=== PATIENT | male | born 1965 | race Caucasian/White ===

== ENCOUNTER 2017-01-01 10:47 | Observation (INO) | payer SELFPAY ==
[~2017-01-01] VITALS: Ht 177.8 cm; Wt 100.0 kg
[2017-01-01 10:50] VITALS: BP 191/124; PULSE 94; RESP 16; TEMP 97.9; O2SAT 97
--- NOTE | 2017-01-01 12:00 | RADRPT ---
EXAM DATE/TIME: 01/01/2017 11:53 [place] COMPARISON: No previous studies available for comparison. INDICATIONS : Chest pain. MEDICAL HISTORY : high blood pressure, dizzyness for 1 month SURGICAL HISTORY : None. ENCOUNTER: Initial ACUITY: 1 day PAIN SCORE: 3/10 LOCATION: Bilateral chest FINDINGS: PA and lateral views of the chest demonstrate the lungs to be symmetrically aerated without evidence of mass, infiltrate or effusion. The cardiomediastinal contours are unremarkable. Osseous structure s are intact. CONCLUSION: No acute disease. Dickson Wise Jr., MD on January 01, 2017 at 11:57 Board Certified Radiologist. This report was verified electronically.
[2017-01-01 12:44] LABS: AUTOMATED NEUTROPHIL # 7.5 TH/MM3 (1.8-7.7); BASOPHIL # 0.1 TH/MM3 (0-0.2); BASOPHIL % 0.5 % (0.0-2.0); EOSINOPHIL # 0.1 TH/MM3 (0-0.4); EOSINOPHIL % 1.2 % (0.0-4.0); HEMATOCRIT 45.4 % (39.0-51.0); HEMO FLAGS DIFF FINAL; LYMPH % 18.2 % (9.0-44.0); LYMPHOCYTE # 1.8 TH/MM3 (1.0-4.8); MEAN CELL VOLUME 96.2 FL (80.0-100.0); MEAN CORPUSCULAR HEMOGLOBIN 33.7 PG (27.0-34.0); MONO % 6.3 % (0.0-8.0); NEUT % 73.8 % (16.0-70.0); PLATELET COUNT 301 TH/MM3 (150-450); RED BLOOD COUNT 4.72 MIL/MM3 (4.50-5.90); RED CELL DISTRIBUTION WIDTH 12.8 % (11.6-17.2); WHITE BLOOD COUNT 10.2 TH/MM3 (4.0-11.0)
[2017-01-01 13:07] VITALS: RESP 21; O2SAT 99
[2017-01-01 13:11] LABS: ANION GAP 8 MEQ/L (5-15); BICARBONATE 26.1 MEQ/L (21.0-32.0); BLOOD UREA NITROGEN 12 MG/DL (7-18); CHLORIDE 106 MEQ/L (98-107); GLOMERULAR FILTRATION RATE 92 ML/MIN (>89); POTASSIUM 4.4 MEQ/L (3.5-5.1); SODIUM (NA) 140 MEQ/L (136-145)
--- NOTE | 2017-01-01 13:13 | PD ---
HPI Chief Complaint: Chest Pain Time Seen by Provider: 13:10 Travel History International Travel<30 days: No Contact w/Intl Traveler<30days: No Traveled to known affect area: No History of Present Illness HPI 51-year-old male came to the emergency room with history of left sided chest pain that started at 9:00 this morning when he was driving. Patient says that he started coughing spontaneously and the pain started after that. He also got dizzy to the point where he had to stop his truck and get out of the vehicle. The dizziness was in the form of lightheadedness. That lasted for another 15- 20 minutes but the chest pain has persisted. Patient says the pain is not as worse as when it first started but still there. It's like a pressure sensation on the left side without any radiation. Patient says this morning when he woke up he was not feeling right and he took his blood pressure pill which is 20 mg of lisinopril. After the incidence in his truck he took another dose of lisinopril. Currently his blood pressure is 201 systolic. Patient says that he had a similar event about 10 years ago when he also had a stress test done. No history of coronary artery disease at this point. He is a smoker. [facility] Past Medical History Narrative Medical List of his past medical, surgical, social and family history is reviewed from the nursing note. Allergies-Medications (Allergen,Severity, Reaction): Coded Allergies: aspirin (Verified Allergy, Intermediate, hives, 01/01/17) ibuprofen (Verified Allergy, Intermediate, hives, 01/01/17) Comments No known drug allergies. Reported Meds & Prescriptions Reported Meds & Active Scripts Active Reported Vitamin C (Ascorbic Acid) 250 Mg Tab 250 Mg PO Multi-Vitamin Daily (Multiple Vitamin) 1 Tab Tab 1 Tab PO DAILY Lisinopril 20 Mg Tab 20 Mg PO DAILY Narrative Medication List of his home medications reviewed from the nursing note. Review of Systems Except as stated in HPI: all other systems reviewed are Neg Cardiovascular: Positive: Chest Pain or Discomfort Physical Exam Narrative GENERAL: Awake, alert, obese, no obvious distress SKIN: Focused skin assessment warm/dry. HEAD: Atraumatic. Normocephalic. EYES: Pupils equal and round. No scleral icterus. No injection or drainage. ENT: No nasal bleeding or discharge. Mucous membranes pink and moist. NECK: Trachea midline. No JVD. CARDIOVASCULAR: Regular rate and rhythm. No murmur appreciated. RESPIRATORY: No accessory muscle use. Clear to auscultation. Breath sounds equal bilaterally. GASTROINTESTINAL: Abdomen soft, non-tender, nondistended. Hepatic and splenic margins not palpable. MUSCULOSKELETAL: No obvious deformities. No clubbing. No cyanosis. No edema. NEUROLOGICAL: Awake and alert. No obvious cranial nerve deficits. Motor grossly within normal limits. Normal speech. PSYCHIATRIC: Appropriate mood and affect; insight and judgment normal. Data Data Last Documented VS Vital Signs Date Time Temp Pulse Resp B/P (MAP) Pulse Ox O2 Delivery O2 Flow Rate FiO2 01/01/17 13:14 99 Room Air 01/01/17 13:07 21 01/01/17 10:50 97.9 94 Orders Orders Electrocardiogram (01/01/17 11:34) Complete Blood Count With Diff (01/01/17 11:34) Basic Metabolic Panel (Bmp) (01/01/17 11:34) Ckmb (Isoenzyme) Profile (01/01/17 11:34) Troponin I (01/01/17 11:34) Iv Access Insert/Monitor (01/01/17 11:34) Ecg Monitoring (01/01/17 11:34) Oxygen Administration (01/01/17 11:34) Oximetry (01/01/17 11:34) Chest, Pa & Lat (01/01/17 11:34) CKMB (01/01/17 12:20) CKMB% (01/01/17 12:20) Clonidine (Catapres) (01/01/17 14:00) Admit Order (Ed Use Only) (01/01/17 14:12) Labs Laboratory Tests Test 01/01/17 12:20 White Blood Count 10.2 TH/MM3 Red Blood Count 4.72 MIL/MM3 Hemoglobin 15.9 GM/DL Hematocrit 45.4 % Mean Corpuscular Volume 96.2 FL Mean Corpuscular Hemoglobin 33.7 PG Mean Corpuscular Hemoglobin Concent 35.0 % Red Cell Distribution Width 12.8 % Platelet Count 301 TH/MM3 Mean Platelet Volume 8.0 FL Neutrophils (%) (Auto) 73.8 % Lymphocytes (%) (Auto) 18.2 % Monocytes (%) (Auto) 6.3 % Eosinophils (%) (Auto) 1.2 % Basophils (%) (Auto) 0.5 % Neutrophils # (Auto) 7.5 TH/MM3 Lymphocytes # (Auto) 1.8 TH/MM3 Monocytes # (Auto) 0.6 TH/MM3 Eosinophils # (Auto) 0.1 TH/MM3 Basophils # (Auto) 0.1 TH/MM3 CBC Comment DIFF FINAL Differential Comment Blood Urea Nitrogen 12 MG/DL Creatinine 0.88 MG/DL Random Glucose 101 MG/DL Calcium Level 9.2 MG/DL Sodium Level 140 MEQ/L Potassium Level 4.4 MEQ/L Chloride Level 106 MEQ/L Carbon Dioxide Level 26.1 MEQ/L Anion Gap 8 MEQ/L Estimat Glomerular Filtration Rate 92 ML/MIN Total Creatine Kinase 224 U/L Creatine Kinase MB 2.5 NG/ML Troponin I LESS THAN 0.02 NG/ML MDM Medical Decision Making Medical Screen Exam Complete: Yes Emergency Medical Condition: Yes Medical Record Reviewed: Yes Interpretation(s) 12-lead EKG is reviewed by me. Normal sinus rhythm, normal axis, nonspecific ST -T wave changes. Heart rate of 81 bpm. Differential Diagnosis GCS, non-STEMI, nonspecific chest pain Narrative Course 2:17 PM patient was given a dose of clonidine here to bring his blood pressure lower. Blood test results are back and within acceptable limits. Patient has risk factor in the form of smoking, hypertension and some family history. I would like to admit him to the chest pain center so that he can be evaluated by the coating mixer and be ruled out. Procedures EKG Prior to Arrival: No Diagnosis Primary Impression: Chest pain Qualified Codes: R07.9 - Chest pain, unspecified Admitting Information Admitting Physician Requests: Observation Yu Soliman MD Jan 01, 2017 13:12
[2017-01-01 13:14] LABS: CREATINE KINASE 224 U/L (39-308)
[2017-01-01 13:26] LABS: CKMB 2.5 NG/ML (0.5-3.6)
[2017-01-01 13:30] VITALS: BP 169/92; PULSE 80; RESP 16; O2SAT 97
[2017-01-01] MEDS ORDERED: LISI-515 PO (13:33)
[2017-01-01] MEDS ORDERED: MULT-65 PO (13:33)
[2017-01-01] MEDS ORDERED: VITA250T3 PO (13:33)
[2017-01-01] MEDS ORDERED: cloNIDine HCL 0.1 MG TAB PO ONE (14:00)
[2017-01-01 14:34] VITALS: O2SAT 99
[2017-01-01 14:44] VITALS: BP 193/104
[2017-01-01] MEDS ORDERED: NITROGLYCERIN 0.4 MG SL 25 TABS/BTL SL PRN (14:45)
[2017-01-01] MEDS ORDERED: ONDANSETRON HCL 4 MG/2 ML VIAL IV PUSH PRN (14:45)
[2017-01-01] MEDS ORDERED: ACETAMINOPHEN 500 MG CPLT PO PRN (14:45)
[2017-01-01] MEDS ORDERED: SODIUM CHLORIDE 0.9% FLUSH 10 ML FLUSH IV FLUSH PRN (14:45)
[2017-01-01] MEDS ORDERED: SODIUM CHLORIDE 0.9% FLUSH 10 ML FLUSH IV FLUSH SCH (21:00)
--- NOTE | 2017-01-02 18:26 | EKG ---
Date Performed: 01/01/2017 Time Performed: 12:15:51 PTAGE: 51 years EKG: Sinus rhythm WITH SINUS ARRHYTHMIA POSSIBLE RIGHT VENTRICULAR CONDUCTION DELAY NONSPECIFIC ST & T-WAVE ABNORMALIT Y BORDERLINE ECG NO PREVIOUS TRACING DOCTOR: Joseluis Rodríguez Interpretating Date/Time 01/02/2017 18:24:44
== END 2017-01-01 15:31 | disposition left against medical advice (07) ==
LOC: NEPC 10:47 → NEDA 14:14
PROVIDERS: ADMIT Internal Medicine Interventional Cardiology; ATTEND Internal Medicine Interventional Cardiology
DX: R07.9 Chest pain, unspecified (principal); I49.8 Other specified cardiac arrhythmias; I10 Essential (primary) hypertension; F17.200 Nicotine dependence, unspecified, uncomplicated
CPT/HCPCS: 71020; 80048; 82550; 82552; 84484; 85025; 93005; 99285; G0378